=== PATIENT | female | born 1945 | race Caucasian/White ===

== ENCOUNTER 2021-04-22 10:39 | Inpatient (IN) ==
[2021-04-22 11:58] LABS: Eosinophils # (auto) 0.01 K/uL (0-0.5); Eosinophils % (auto) 0.1 %; Hemoglobin 13.2 g/dL (12.0-16.0); Immature Granulocytes # (auto) 0.02 K/uL (0.00-0.02); Immature Granulocytes % (auto) 0.3 %; Lymphocytes # (auto) 0.84 K/uL (1.2-3.4); Lymphocytes % (auto) 11.8 %; Mean Corpuscular Hemoglobin 30.3 pg (25-34); Mean Corpuscular Hgb Conc 33.8 g/dL (32-36); Mean Corpuscular Volume 89.7 fL (80-100); Mean Platelet Volume 11.6 fL (7.4-10.4); Monocytes # (auto) 0.98 K/uL (0.11-0.59); Monocytes % (auto) 13.8 %; Neutrophils # (auto) 5.26 K/uL (1.4-6.5); Platelet Count 226 K/uL (130-400); RDW Coefficient of Variation 14.9 % (11.5-14.5); RDW Standard Deviation 48.8 fL (36.4-46.3); Red Blood Count 4.35 M/uL (4.2-5.4); White Blood Count 7.11 K/uL (4.8-10.8)
[2021-04-22] MEDS ORDERED: SODIUM CHLORIDE 0.9% 1000ML 1,000 ML IV SCH (12:00)
[2021-04-22 12:09] LABS: INR 2.4 (0.9-1.1); Partial Thromboplastin Ratio 1.7; Partial Thromboplastin Time 44.9 Seconds (21.0-31.0)
[2021-04-22 12:19] LABS: Alanine Aminotransferase 34 U/L (12-78); Albumin Level 2.8 gm/dl (3.4-5.0); Aspartate Aminotransferase 49 U/L (15-37); BUN Creatinine Ratio 17.1 (10-20); Blood Urea Nitrogen 43 mg/dl (7-18); Calcium 8.2 mg/dl (8.5-10.1); Carbon Dioxide 19 mmol/L (21-32); Chloride 104 mmol/L (98-107); Creatinine Clr Calc Pharmacy 23.6 ml/min; Est GFR (African American) 21.1 ml/min; Est GFR (Non-African American) 18.2 ml/min; Glucose 171 mg/dl (70-99); Sodium 137 mmol/L (136-145)
[2021-04-22 12:23] LABS: Albumin Globulin Ratio 0.7 (0.9-2); Alkaline Phosphatase 67 U/L (45-117); Bilirubin,Total 0.4 mg/dl (0.2-1); Globulin 3.8 gm/dl (2.5-4.0); Total Protein 6.6 gm/dl (6.4-8.2); Troponin I < 0.015 ng/ml (0-0.045)
[2021-04-22] MEDS ORDERED: SODIUM CHLORIDE 0.9% 1000ML 1,000 ML IV ONE (13:47)
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
[2021-04-22] MEDS ORDERED: ONDANSETRON INJ 2 MG/ML 2 ML VIAL IV PRN (16:22)
[2021-04-22] MEDS ORDERED: ACETAMINOPHEN 325 MG TAB PO PRN (16:22)
[2021-04-22] MEDS ORDERED: ALUMINUM/MAGNESIUM SUSP 30 ML UDC PO PRN (16:22)
[2021-04-22 17:16] LABS: Appearance Urine Clear (Clear); Bacteria Urine Automated Negative (Negative); Bilirubin Urine Negative (Negative); Blood Urine Negative (Negative); Color Urine Yellow; Glucose Urine UA Negative (Negative); Ketones Urine Negative (Negative); Leukocyte Esterase Urine 1+ (Negative); Nitrite Urine Negative (Negative); Protein Urine Negative (Negative); RBC Urine Automated 0-4 /hpf (0-4); Specific Gravity Urine 1.013 (1.000-1.030); Urobilinogen Urine Negative (Negative)
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
[2021-04-22] MEDS: NORMOSOL-R 1,000 ML IV SCH (18:53)
[2021-04-23] MEDS: NORMOSOL-R 1,000 ML IV SCH (05:17)
[2021-04-23 06:59] LABS: INR 3.6 (0.9-1.1); Prothrombin Time 32.9 Seconds (9.0-12.0)
[2021-04-23 07:13] LABS: Calcium 7.7 mg/dl (8.5-10.1); Creatinine Clr Calc Pharmacy 34.9 ml/min; Est GFR (African American) 33.6 ml/min; Magnesium 1.8 mg/dl (1.8-2.4); Potassium 3.9 mmol/L (3.5-5.1)
[2021-04-23] MEDS ORDERED: ALBUT/IPRATROP 3MG/0.5MG NEB 3 ML VIAL NEB PRN (10:10)
[2021-04-23] MEDS ORDERED: DEXTROSE 50% 50 ML SYRINGE IV PRN (10:18)
[2021-04-23] MEDS ORDERED: GLUCOSE 10 TABS/TUBE PO PRN (10:18)
[2021-04-23] MEDS ORDERED: GLUCOSE 40% GEL 15 GM TUBE PO PRN (10:18)
[2021-04-23] MEDS ORDERED: CARBOHYDRATES FOR HYPOGLYCEMIA PO PRN (10:18)
[2021-04-23] MEDS ORDERED: GLUCAGON FOR INJ 1 MG VIAL SQ PRN (10:18)
[2021-04-23] MEDS ORDERED: REMDESIVIR 200 MG in SODIUM CHLORIDE 0.9% 210 ML IV STA (10:23)
[2021-04-23] MEDS: dexAMETHasone 6 MG in SYRINGE 0 ML IV SCH (11:20)
--- NOTE | 2021-04-23 12:05 | Ultrasound Report ---
BILATERAL CAROTID DOPPLER STUDY HISTORY: syncope COMPARISON: None. TECHNIQUE: Real-time, grayscale, and color Doppler sonography of the carotid arteries was performed. Imaging reviewed in the transverse and longitudinal planes. All measurements were calculated based on NASCET criteria. FINDINGS: Antegrade flow is seen in the bilateral vertebral arteries. The brachial pressures were not obtained due to the portable study. Mild right and moderate left carotid bifurcation calcified plaque. The peak systolic velocity within the right ICA is 56 cm/s. The right systolic ratio is 0.7. The peak systolic velocity within the left ICA is 98 cm/s. The left systolic ratio is 1.1. Mild stenosis within the bilateral proximal external carotid arteries due to the calcified plaque. IMPRESSION: No hemodynamically significant stenosis seen within the bilateral common or internal carotid arteries . ACT 112: Negative or not required by law. Electronically signed by: Ervin Recinos M.D. 04/23/2021 12:04 PM
[2021-04-23] MEDS: INSULIN HUMAN NPH SC SCH (12:53)
[2021-04-23] MEDS: ASCORBIC ACID 500 MG TAB PO SCH (12:53)
[2021-04-23] MEDS: ZINC SULFATE 220 MG CAPSULE PO SCH (12:53)
[2021-04-23] MEDS: INSULIN ASPART 100 UNITS/ML 3 ML PEN SC SCH ×3 (13:24→20:07)
[2021-04-23] MEDS: SODIUM CHLORIDE 0.9% 10ML FLUSH IV SCH (14:11)
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
--- NOTE | 2021-04-23 16:39 | XCELERA ---
[id number]
--- NOTE | 2021-04-23 18:20 | Electrocardiogram Report ---
Test Reason : Blood Pressure : / mmHG Vent. Rate : 096 BPM Atrial Rate : 096 BPM P-R Int : 166 ms QRS Dur : 084 ms QT Int : 364 ms P-R-T Axes : 083 -29 025 degrees QTc Int : 459 ms Normal sinus rhythm Normal ECG When compared with ECG of 02-APR-2013 18:23, Vent. rate has increased BY 33 BPM Confirmed by Edi Christian ([id number]) on 04/23/2021 6:20:32 PM Referred By: REFERRED SELF Confirmed By:Edi Christian
[2021-04-24] MEDS: LEVOTHYROXINE SODIUM 100 MCG TABLET PO SCH (06:20)
[2021-04-24 07:18] LABS: Hemoglobin 12.9 g/dL (12.0-16.0); Immature Granulocytes # (auto) 0.01 K/uL (0.00-0.02); Immature Granulocytes % (auto) 0.2 %; Lymphocytes # (auto) 0.56 K/uL (1.2-3.4); Lymphocytes % (auto) 12.7 %; Mean Corpuscular Hemoglobin 30.4 pg (25-34); Mean Corpuscular Hgb Conc 33.9 g/dL (32-36); Mean Corpuscular Volume 89.6 fL (80-100); Mean Platelet Volume 11.4 fL (7.4-10.4); Monocytes # (auto) 0.56 K/uL (0.11-0.59); Monocytes % (auto) 12.7 %; Neutrophils # (auto) 3.27 K/uL (1.4-6.5); Neutrophils % (auto) 74.4 %; Platelet Count 177 K/uL (130-400); RDW Coefficient of Variation 15.2 % (11.5-14.5); RDW Standard Deviation 49.3 fL (36.4-46.3); Red Blood Count 4.24 M/uL (4.2-5.4)
[2021-04-24 07:44] LABS: INR 3.7 (0.9-1.1); Prothrombin Time 33.7 Seconds (9.0-12.0)
[2021-04-24 07:51] LABS: Albumin Level 2.2 gm/dl (3.4-5.0); BUN Creatinine Ratio 27.5 (10-20); Calcium 7.8 mg/dl (8.5-10.1); Creatinine Clr Calc Pharmacy 40.3 ml/min; Est GFR (African American) 38.7 ml/min; Est GFR (Non-African American) 33.4 ml/min; Magnesium 2.1 mg/dl (1.8-2.4); Potassium 4.1 mmol/L (3.5-5.1)
[2021-04-24 07:53] LABS: Albumin Globulin Ratio 0.6 (0.9-2); Bilirubin,Total 0.3 mg/dl (0.2-1); Globulin 3.5 gm/dl (2.5-4.0); Total Protein 5.7 gm/dl (6.4-8.2)
[2021-04-24] MEDS: dexAMETHasone 6 MG in SYRINGE 0 ML IV SCH (09:31)
[2021-04-24] MEDS: ASCORBIC ACID 500 MG TAB PO SCH (09:31)
[2021-04-24] MEDS: ATORVASTATIN 40 MG TAB PO SCH (09:31)
[2021-04-24] MEDS: ZINC SULFATE 220 MG CAPSULE PO SCH (09:31)
[2021-04-24] MEDS: INSULIN ASPART 100 UNITS/ML 3 ML PEN SC SCH ×4 (09:53→20:58)
[2021-04-24] MEDS: INSULIN HUMAN NPH SC SCH (09:53)
[2021-04-24] MEDS: REMDESIVIR 100 MG in SODIUM CHLORIDE 0.9% 230 ML IV SCH (12:07)
[2021-04-24] MEDS: SODIUM CHLORIDE 0.9% 10ML FLUSH IV SCH (12:44)
[2021-04-24] MEDS ORDERED: LACTATED RINGER'S 1,000 ML IV SCH (15:15)
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
[2021-04-24] MEDS ORDERED: INSULIN GLARGINE SOLOSTAR 100 UNITS/ML 3 ML PEN SC SCH (21:00)
[2021-04-25] MEDS: LEVOTHYROXINE SODIUM 100 MCG TABLET PO SCH (05:51)
[2021-04-25 07:01] LABS: INR 3.4 (0.9-1.1); Prothrombin Time 31.1 Seconds (9.0-12.0)
[2021-04-25 07:16] LABS: BUN Creatinine Ratio 33.7 (10-20); Calcium 7.8 mg/dl (8.5-10.1); Creatinine Clr Calc Pharmacy 38.6 ml/min; Est GFR (African American) 36.1 ml/min; Est GFR (Non-African American) 31.2 ml/min; Magnesium 1.9 mg/dl (1.8-2.4); Potassium 4.1 mmol/L (3.5-5.1)
[2021-04-25 07:26] LABS: Thyroid Stimulating Hormone 0.081 uIu/ml (0.300-4.500)
[2021-04-25] MEDS: ATORVASTATIN 40 MG TAB PO SCH (08:11)
[2021-04-25] MEDS: ZINC SULFATE 220 MG CAPSULE PO SCH (08:11)
[2021-04-25] MEDS: dexAMETHasone 6 MG in SYRINGE 0 ML IV SCH (08:12)
[2021-04-25] MEDS: ASCORBIC ACID 500 MG TAB PO SCH (08:12)
[2021-04-25] MEDS: INSULIN ASPART 100 UNITS/ML 3 ML PEN SC SCH ×4 (08:30→20:21)
[2021-04-25] MEDS: INSULIN HUMAN NPH SC SCH (09:53)
[2021-04-25] MEDS: AMOXICILLIN 500 MG CAP PO SCH ×3 (11:03→20:28)
[2021-04-25] MEDS: REMDESIVIR 100 MG in SODIUM CHLORIDE 0.9% 230 ML IV SCH (11:28)
[2021-04-25] MEDS: SODIUM CHLORIDE 0.9% 10ML FLUSH IV SCH (12:11)
[2021-04-25] MEDS: metFORMIN HCL 500 MG TAB PO SCH (17:41)
[2021-04-25] MEDS ORDERED: INSULIN GLARGINE SOLOSTAR 100 UNITS/ML 3 ML PEN SC SCH (21:00)
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
[2021-04-26] MEDS: LEVOTHYROXINE SODIUM 100 MCG TABLET PO SCH (05:48)
[2021-04-26 07:43] LABS: Basophils # (auto) 0.01 K/uL (0-0.2); Basophils % (auto) 0.1 %; Hematocrit (blood only) 35.5 % (37-47); Hemoglobin 12.4 g/dL (12.0-16.0); Immature Granulocytes # (auto) 0.03 K/uL (0.00-0.02); Immature Granulocytes % (auto) 0.3 %; Lymphocytes % (auto) 9.1 %; Mean Corpuscular Hemoglobin 30.2 pg (25-34); Mean Corpuscular Hgb Conc 34.9 g/dL (32-36); Mean Corpuscular Volume 86.6 fL (80-100); Monocytes # (auto) 1.21 K/uL (0.11-0.59); Monocytes % (auto) 13.8 %; Neutrophils # (auto) 6.75 K/uL (1.4-6.5); Neutrophils % (auto) 76.7 %; Platelet Count 206 K/uL (130-400); RDW Coefficient of Variation 14.9 % (11.5-14.5); RDW Standard Deviation 47.3 fL (36.4-46.3)
[2021-04-26 07:54] LABS: INR 2.7 (0.9-1.1); Prothrombin Time 25.7 Seconds (9.0-12.0)
[2021-04-26 08:17] LABS: BUN Creatinine Ratio 37.5 (10-20); Calcium 7.7 mg/dl (8.5-10.1); Creatinine Clr Calc Pharmacy 38.5 ml/min; Est GFR (African American) 35.9 ml/min; Est GFR (Non-African American) 30.9 ml/min; Potassium 4.3 mmol/L (3.5-5.1)
[2021-04-26 08:19] LABS: Estimated Average Glucose 146 mg/dl; Hemoglobin A1C 6.7 % (4.5-5.6)
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
[2021-04-26] MEDS: INSULIN ASPART 100 UNITS/ML 3 ML PEN SC SCH ×2 (08:38→12:35)
[2021-04-26] MEDS: metFORMIN HCL 500 MG TAB PO SCH (08:39)
[2021-04-26] MEDS: AMOXICILLIN 500 MG CAP PO SCH ×2 (08:39→14:08)
[2021-04-26] MEDS: ZINC SULFATE 220 MG CAPSULE PO SCH (08:39)
[2021-04-26] MEDS: dexAMETHasone 6 MG in SYRINGE 0 ML IV SCH (08:39)
[2021-04-26] MEDS: ASCORBIC ACID 500 MG TAB PO SCH (08:39)
[2021-04-26] MEDS: ATORVASTATIN 40 MG TAB PO SCH (08:39)
[2021-04-26] MEDS: REMDESIVIR 100 MG in SODIUM CHLORIDE 0.9% 230 ML IV SCH (08:46)
[2021-04-26] MEDS: SODIUM CHLORIDE 0.9% 10ML FLUSH IV SCH (10:22)
== END 2021-04-26 14:46 | disposition home or self-care (01) | DRG 177 ==
LOC: ED 10:39 → EDINP 10:39 → SUATTDRO 16:22 → 2E 18:24 → SUATTDRO 04-24 08:04